=== PATIENT | female | born 1965 | race Caucasian/White ===

== ENCOUNTER 2020-02-09 15:41 | Emergency (ER) | payer OTHER, SELFPAY ==
[2020-02-09 15:43] VITALS: BP 199/101; PULSE 71; RESP 18; TEMP 36.3; O2SAT 99; BMI 27.4
--- NOTE | 2020-02-09 16:41 | XR_ITS ---
WS: [id number] EXAM: AP CHEST: PORTABLE UPRIGHT DATE OF EXAM: 02/09/2020, 1655 hours COMPARISON: NONE HISTORY: Patient is 54 years old with atraumatic chest pain. FINDINGS: The cardiac silhouette is normal in size. The mediastinal contours are normal. The pulmonary vas cularity is normal. Slight chronic lung changes seen suggesting fibrosis. Lungs are clear of consoli dation. There is no effusion or pneumothorax. No acute bony abnormality is seen. XR/XR chest 1V portable [id number] IMPRESSION: No acute pulmonary disease. Slight chronic lung changes felt to be present.
--- NOTE | 2020-02-09 16:41 | ECG_ITS ---
[facility] Test Date: 2020-02-09 Pat Name: Ines Tiwari Department: Room: Gender: Female Digital Operations Analyst: : 1965 Requested By: Leanna Rooney Order Number: [id number] Deepa MD: Arelis Ortiz M.D. Measurements Intervals [place] Rate: 58 P: 46 AK: 169 QRS: 68 QRSD: 85 T: 65 QT: 420 QTc: 414 Interpretive Statements SINUS BRADYCARDIA Possible old septal WI No previous ECG available for comparison Electronically Signed On 02-09-2020 23:04:12 CDT by Arelis Ortiz M.D. [id number]
[2020-02-09 16:42] VITALS: BP 176/99; PULSE 73; RESP 19; O2SAT 99
[2020-02-09 17:00] VITALS: BP 169/99; PULSE 72; RESP 16; O2SAT 100
[2020-02-09] MEDS: aspirin 325 mg Tablet PO (17:02)
--- NOTE | 2020-02-09 17:23 | W.ED.CHESTPA ---
HPI - Chest Pain General: Chief Complaint: Chest Pain Stated Complaint: high blood pressure Time Seen by Provider: 02/09/20 16:39 Source: patient Mode of arrival: ambulatory Limitations: no limitations History of Present Illness: HPI narrative: Ines is a nice 54-year-old female who comes in complaining of chest pressure, lightheadedness, shortness of breath that all occurred today. 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 Today she did take a half dose of 1 of her blood pressure medications she states her symptoms are new and she is never had anything like this before. Her symptoms have resolved now with rest. She does not describe any radiation of her pain, diaphoresis, nausea, vomiting, or other complaints. Patient states that she may have overexerted herself and she understands that she should have taken her medications like she was supposed to. Associated symptoms: Reports dyspnea; Deny abdominal pain, diaphoresis, fever(s), nausea, palpitations, syncope or vomiting Review of Systems Const: Denies: fever(s), chills, body aches, fatigue, malaise or diaphoresis Eyes: Denies: change in vision, blurry vision, photophobia, eye discomfort, eye discharge or eye redness ENMT: Denies: throat pain, odynophagia, hoarseness, swelling of lips/tongue, ear or mastoid pain, ear discharge, change in hearing or nasal discharge Card: Reports: chest pain; Denies: palpitations, irregular heart rhythm, edema, lightheadedness, syncope, pre-syncope, dyspnea on exertion or orthopnea Resp: Reports: dyspnea; Denies: productive cough, non-productive cough, wheezing, hemoptysis or chest congestion GI: Denies: abdominal pain, nausea, vomiting, hematemesis, coffee ground emesis, heartburn, diarrhea, constipation, GI cramping, hematochezia or melena : Denies: flank pain, dysuria, urinary frequency, urinary urgency or hematuria Musc: Denies: neck pain, back pain, extremity pain, extremity swelling, joint pain, joint swelling, joint redness, joint warmth or joint stiffness Skin/Breast: Denies: rash, pruritus, erythema or skin tenderness Neuro: Denies: headache(s), numbness in extremities, weakness in extremities, sensory changes, lack of coordination, difficulty walking, dizziness, vertigo, confusion, Slurred speech present or seizure-like activity Henrry/Lymph: Denies: easy bruising, easy bleeding, petechiae, purpura or enlarged lymph nodes All/Imm: Denies: urticaria, throat swelling, tongue swelling, facial swelling or acute wheezing PFSH ED PFSH: Medical History (Updated 02/09/20 @ 18:38 by Leanna Johnson) Hypertension Hypothyroidism Family History (Updated 02/09/20 @ 17:25 by Leanna Johnson) Denies family history of CAD (coronary artery disease) Stroke Social History (Updated 02/09/20 @ 17:25 by Leanna Johnson) Smoking and tobacco status: current every day smoker Physical Exam Const: COMMON NORMALS: no acute distress, patient oriented x3, no limitations, healthy appearing and well nourished GENERAL APPEARANCE: cooperative, well kempt and well developed HENMT: COMMON NORMALS: normocephalic, atraumatic, external ears normal, EAC's normal and Normal external nose present HEAD & SCALP: normal to inspection, normocephalic and atraumatic FACE & SINUS: normal facial exam and face symmetric NOSE: Normal external nose present and Normal nares present EXTERNAL EAR: Yes external ears normal EXTERNAL AUDITORY CANAL: EAC's normal MOUTH: Normal oral and palatal mucosa present, lip normal and tongue normal Eye: COMMON NORMALS: Equal, round and reactive pupils present and conjunctivae normal GENERAL EYE: appearance normal, both eyes and all related structures ALIGNMENT: Yes alignment normal PERIORBITAL: periorbital findings normal EYELID: eyelids normal CONJUNCTIVA: Yes conjunctivae normal SCLERA: sclerae normal PUPIL: Yes Equal, round and reactive pupils present Neck/C-Spine: COMMON NORMALS: full ROM, no lymphadenopathy, supple, no meningeal signs and no JVD GENERAL: Yes normal visual inspection and Yes trachea midline Chest: COMMONS NORMALS: normal inspection of the chest and normal palpation of entire chest wall Resp: COMMON NORMALS: normal respiratory effort, No retractions, No use of accessory muscles and clear to auscultation bilaterally EFFORT & INSPECTION: Yes able to speak in complete sentences and Yes symmetric chest movement AUSCULTATION: clear to auscultation bilaterally, no crackles, no rales, no rhonchi and no wheezes Cardio: COMMON NORMALS: no JVD, regular rate, regular rhythm, S1 normal heart sound present and S2 normal heart sound present RATE: regular rate RHYTHM: regular rhythm HEART SOUNDS: S1 normal heart sound present, S2 normal heart sound present, no click, no gallops, no murmurs, no rubs and abnormal split S2 GI: COMMON NORMALS: Soft to palpation and No hepatosplenomegaly present PALPATION: Yes Soft to palpation, No Tenderness to palpation present (GI), No Guarding due to palpation present (GI), No Rigid due to palpation, Yes No hepatosplenomegaly present, No Hernia present, No Palpable mass present and No Pulsatile mass present : COMMON NORMALS: Yes no CVA tenderness BLADDER/KIDNEY EXAM: Yes no CVA tenderness EXTERNAL FEMALE EXAM: No Hernia present Back/Pelvis: COMMON NORMALS: no CVA tenderness, thoracic and lumbar spine normal to inspection, no thoracic nor lumbar tenderness and thoraco-lumbar ROM normal Extremity: COMMON NORMALS: normal to inspection, full ROM, capillary refill normal, no joint enlargement, no clubbing, cyanosis or edema and no calf tenderness Neuro: COMMON NORMALS: patient oriented x3, CN's II-XII intact bilaterally, moves all extremities, no focal motor deficits and no sensory deficits noted MENINGEAL SIGNS: Yes no meningeal signs SPEECH: speech normal Psych: COMMON NORMALS: mental status grossly normal, Normal thought process present, cooperative, normal affect, speech normal and activity/motor behavior normal APPEARANCE: Yes well kempt SPEECH: Yes normal speech THOUGHT PROCESS: Normal thought process present Skin: COMMON NORMALS: no rashes or lesions noted, turgor normal, no jaundice, no petechiae and no mottling GENERAL SKIN EXAM: no rashes or lesions noted and turgor normal Course Vital Signs: Vital signs: Vital Signs Temperature 97.4 F L 02/09/20 15:43 Pulse Rate 66 02/09/20 18:36 Respiratory Rate 16 02/09/20 18:36 Blood Pressure 160/91 02/09/20 18:36 Pulse Oximetry 97 02/09/20 18:36 MDM - Chest Pain MDM Narrative: Medical decision making narrative: 1837 -the patient's symptoms are still gone. I went to inform her that her tests were negative. She is insisting upon going at this time. I informed her that I cannot definitively rule out a heart attack without a repeat EKG and second troponin but she declines to stay and wants to go home. We discussed the risks of heart attack including ultimately or severe permanent disability but despite this she wants to be discharged. She agrees to return should her symptoms change or worsen and she accepts the risks of leaving against my advice. Patient understands this is a risk her life but she thinks this is a low risk and wants to be discharged. Patient was welcome to return if she changed her mind. Patient had clear capacity make this decision she understood the risks and benefits and she also understood she could return at any time. Lab Data: Attestation: I reviewed the patient's lab results. Labs: Lab Results 02/09/20 02/09/20 02/09/20 Range/Units 16:55 17:28 17:28 WBC 9.0 (4.0-10.0) 10^3/ uL RBC 4.81 (4.1-5.3) 10^6/u L Hgb 14.8 (11.5-15.3) g/dL Hct 43.8 (37.0-47.0) % MCV 91.1 (81-99) fL MCH 30.8 (28.0-34.0) pg MCHC 33.8 (30.0-36.0) g/dL RDW 12.0 L (12.1-15.1) % Plt Count 340 (130-400) 10^3/c mm MPV 9.9 (7.4-10.4) fL Neut % (Auto) 57.6 % Lymph % (Auto) 33.7 % [place] % (Auto) 6.1 % Eos % (Auto) 1.3 % Baso % (Auto) 1.1 % Neut # (Auto) 5.19 (1.8-7.7) 10^3/u L Lymph # (Auto) 3.0 (0.8-4.8) 10^3/u L [place] # (Auto) 0.6 (0.2-0.9) 10^3/u L Eos # (Auto) 0.1 (0.0-0.8) 10^3/u L Baso # (Auto) 0.1 (0.0-0.1) 10^3/u L Nucleated RBC % (a uto) 0 % Nucleated RBCs # 0.0 /100WBC Troponin T Baselin ai 6 (0-10) ng/L HCG, Qual (Negative) Urine Color Yellow (Yellow) Urine Appearance Clear (CLEAR) Urine pH 7 (5-7) Ur Specific Gravit y 1.010 (1.005-1.030) Urine Protein Neg (Negative) Urine Glucose (UA) Norm (Normal) Urine Ketones Negative (Negative) Urine Blood Trace H (Negative) Urine Nitrate Negative (Negative) Urine Bilirubin Neg (NEGATIVE) Urine Urobilinogen Neg (Negative) mg/dL Ur Leukocyte Qiana ase Negative (Negative) Urine RBC 0-4 H (0-2) /hpf Urine WBC None (0-5) /hpf Ur Squamous Epith Cells 0-4 H (0-5) Amorphous Sediment Not Reportable Urine Bacteria Trace (NONE) 02/09/20 Range/Units 17:28 WBC (4.0-10.0) 10^3/ uL RBC (4.1-5.3) 10^6/u L Hgb (11.5-15.3) g/dL Hct (37.0-47.0) % MCV (81-99) fL MCH (28.0-34.0) pg MCHC (30.0-36.0) g/dL RDW (12.1-15.1) % Plt Count (130-400) 10^3/c mm MPV (7.4-10.4) fL Neut % (Auto) % Lymph % (Auto) % [place] % (Auto) % Eos % (Auto) % Baso % (Auto) % Neut # (Auto) (1.8-7.7) 10^3/u L Lymph # (Auto) (0.8-4.8) 10^3/u L [place] # (Auto) (0.2-0.9) 10^3/u L Eos # (Auto) (0.0-0.8) 10^3/u L Baso # (Auto) (0.0-0.1) 10^3/u L Nucleated RBC % (a uto) % Nucleated RBCs # /100WBC Troponin T Baselin e (0-10) ng/L HCG, Qual Negative (Negative) Urine Color (Yellow) Urine Appearance (CLEAR) Urine pH (5-7) Ur Specific Gravit y (1.005-1.030) Urine Protein (Negative) Urine Glucose (UA) (Normal) Urine Ketones (Negative) Urine Blood (Negative) Urine Nitrate (Negative) Urine Bilirubin (NEGATIVE) Urine Urobilinogen (Negative) mg/dL Ur Leukocyte Qiana ase (Negative) Urine RBC (0-2) /hpf Urine WBC (0-5) /hpf Ur Squamous Epith Cells (0-5) Amorphous Sediment Urine Bacteria (NONE) Imaging Data^: CXR: My impression: No acute cardiopulmonary findings. EKG Data^: EKG 1: Attestation: I personally reviewed and interpreted this EKG as follows: EKG interpretation date: 02/09/20 EKG interpretation time: 15:50 Interpretation: Sinus bradycardia at 58 beats a minute, no acute ST-T wave changes. Normal axis. No blocks, normal intervals. Discharge Plan Discharge Patient Disposition: Home Clinical Impression: Chest pain Qualifiers: Chest pain type: unspecified Qualified Code(s): R07.9 - Chest pain, unspecified Condition: Stable Prescriptions: No Action metoprolol tartrate 50 mg tablet 50 mg PO BID Qty: 60 RF: 0 lorazepam 1 mg tablet 1 mg PO DAILY PRN (Reason: anxiety) 30 Days Qty: 30 RF: 5 Synthroid 125 mcg tablet 125 mcg PO DAILY RF: 0 Aleve 220 mg Capsule 220 mg PO BID PRN (Reason: Pain) RF: 0 Eyedrops See Rx Instructions .ROUTE .COMPLEX RF: 0 Discharge Orders: Discharge Order (Routine); Ordered 02/09/20 Ordered By: Leanna Johnson Referrals: Aggie Arriaga MD [Primary Care Provider] - 1-3 days Discharge Diet: Advance as tolerated Discharge Activity: Increase activity as tolerated Patient Instructions: Chest Pain (ED) Activity Restrictions/Additional Instructions: Please return to the ER immediately for any of the signs or symptoms listed on your discharge instruction sheets, worsening/changing of your symptoms, you are not getting better as quickly as expected, or for ANY other cause or concerns. I have recommended and you have been offered further evaluation and care of your heart. I have recommended and offered to keep you further to repeat EKGs and cardiac enzymes to definitively rule out a heart attack which you have declined. Of course any type of heart problem can be life-threatening so if you change your mind, your symptoms return, you pass out or nearly pass out, you develop any type of chest discomfort or you simply change your mind you are more than welcome to return to the ER at any time for recheck. Coding Level of Care Code ED Spinner Frame for Maynor Fwd Exam Comprehensive
[2020-02-09 17:24] LABS: Urine Appearance Clear (CLEAR); Urine Color Yellow (Yellow); pH Urine 7 (5-7)
[2020-02-09 17:25] LABS: Add Urine Culture? No; Bacteria Urine TRACE; Bilirubin Urine Neg (NEGATIVE); Blood Urine Trace (Negative); Glucose Urine UA Norm (Normal); Ketones Urine Negative (Negative); Leukocyte Esterase Urine Negative (Negative); Nitrate Urine Negative (Negative); Protein Urine Neg (Negative); RBC Urine 0-4 /hpf (0-2); Squamous Epithelial Cell Urine 0-4 (0-5); Urobilinogen Urine Neg (Negative)
[2020-02-09 17:30] VITALS: BP 163/89; PULSE 63; RESP 16; O2SAT 99
[2020-02-09 17:38] LABS: Basophils # 0.1 10^3/uL (0.0-0.1); Basophils % 1.1 %; Eosinophils # 0.1 10^3/uL (0.0-0.8); Eosinophils % 1.3 %; Hematocrit 43.8 % (37.0-47.0); Hemoglobin 14.8 g/dL (11.5-15.3); Lymphocytes % 33.7 %; Mean Corpuscular HGB Conc 33.8 g/dL (30.0-36.0); Mean Corpuscular Hemoglobin 30.8 pg (28.0-34.0); Mean Corpuscular Volume 91.1 fL (81-99); Mean Platelet Volume 9.9 fL (7.4-10.4); Monocytes # 0.6 10^3/uL (0.2-0.9); Monocytes % 6.1 %; Neutrophils # 5.19 10^3/uL (1.8-7.7); Neutrophils % 57.6 %; Nucleated Red Blood Cells % 0 %; Platelet Count 340 10^3/cmm (130-400); Red Blood Count 4.81 10^6/uL (4.1-5.3)
[2020-02-09 17:55] LABS: HCG, Serum Qual Negative (Negative)
[2020-02-09 18:07] LABS: Troponin(5th) Baseline 6 ng/L (0-10)
[2020-02-09 18:36] VITALS: BP 160/91; PULSE 66; RESP 16; O2SAT 97
[2020-02-09 18:47] VITALS: BP 160/91; PULSE 67; RESP 17; O2SAT 98
[2020-02-09 19:10] LABS: Alanine Aminotransferase 21 U/L (0-33); Albumin Level 4.4 g/dL (3.5-5.2); Alkaline Phosphatase 67 IU/L (35-105); Anion Gap 14.9 (5-19); Aspartate Amino Transferase 14 U/L (0-32); Blood Urea Nitrogen 10 mg/dL (6-20); Carbon Dioxide 25 mmol/L (22-29); Chloride 104 mmol/L (98-107); Creatinine Clr Calc Pharmacy 68.7546; Globulin 2.5 g/dL (1.3-4.6); Glomerular Filtration Rate 65.8 mL/min (90-130); Glucose 99 mg/dL (65-115); Lipase 61 U/L (13-60); Magnesium 2.2 mg/dL (1.7-2.3); Osmolality Calculated 286 mOsm/kg (285-295); Potassium 3.9 mmol/L (3.5-5.1); Sodium 140 mmol/L (136-145); Total Bilirubin 0.3 mg/dL (0.15-1.2); Total Protein 6.9 g/dL (6.6-8.7)
== END 2020-02-09 18:48 | disposition home or self-care (01) ==
PROVIDERS: Emergency Provider Emergency Medicine; PCP Family Medicine
DX: R07.9 Chest pain, unspecified (principal); I10 Essential (primary) hypertension; F17.210 Nicotine dependence, cigarettes, uncomplicated
CPT/HCPCS: 12345; 36415; 71045; 80053; 81001; 83690; 83735; 84484; 84703; 85025; 93005; 99282; 99284

== ENCOUNTER → 2020-03-08 10:56 | Outpatient (BNVA) | payer OTHER, SELFPAY | PROVIDERS: PCP Family Medicine; Visit Provider Nurse Practitioner Family | DX: J06.9 Acute upper respiratory infection, unspecified (principal); Z11.59 Encounter for screening for other viral diseases | CPT/HCPCS: 87635 ==

== ENCOUNTER → 2020-05-09 09:20 | Outpatient (BNVA) | payer OTHER, SELFPAY | PROVIDERS: PCP Family Medicine; Visit Provider Family Medicine | DX: E03.9 Hypothyroidism, unspecified (principal); I10 Essential (primary) hypertension; Z86.39 Personal history of other endocrine, nutritional and metabolic disease; F17.210 Nicotine dependence, cigarettes, uncomplicated; Z71.89 Other specified counseling | CPT/HCPCS: 80048; 84439; 84443; 84481; 85025 ==

== ENCOUNTER 2022-04-23 09:33 | Outpatient (CLI) | payer OTHER, SELFPAY | END 2022-04-23 09:34 | disposition home or self-care (01) | LOC: RAD 09:37 | PROVIDERS: PCP Family Medicine; Visit Provider Family Medicine | DX: M19.031 Primary osteoarthritis, right wrist (principal); M19.032 Primary osteoarthritis, left wrist | CPT/HCPCS: 73110 ==

== ENCOUNTER → 2022-08-27 08:07 | Outpatient (BNVA) | payer OTHER, SELFPAY | PROVIDERS: PCP Family Medicine; Referring Provider Family Medicine; Visit Provider Specialist | DX: G56.12 Other lesions of median nerve, left upper limb (principal); G56.31 Lesion of radial nerve, right upper limb | CPT/HCPCS: 73110 ==

== ENCOUNTER 2022-09-25 09:00 | Outpatient (CLI) | payer OTHER, SELFPAY ==
--- NOTE | 2022-09-25 09:30 | MR_ITS ---
WS: [id number] EXAMINATION: MR wrist RT wo con* [id number] ORDER DATE: 09/25/2022 9:20 AM COMPARISON: None. HISTORY: right radial wrist pain CONTRAST: None. TECHNIQUE: Axial T1, axial T2 fat sat, coronal T1, coronal proton density fat sat, coronal STIR, coretta nal 3D, and sagittal T1 performed. After contrast, axial T1 fat sat, coronal T1 fat sat, and sagittal T1 fat sat were performed. FINDINGS: Increased signal abnormality involving the abductor pollicis longus and extensor pollicis b daniela tendons along the radial aspect of the rest with associated fluid along the tendon sheath tiny tible with tendinopathy and tenosynovitis. Small associated presumed ganglion cyst along the dorsal a spect of the tendons measuring 3.3 mm. Radial collateral ligament appears intact. Small amount of edema along the radial aspect of the wrist . Small amount of edema along the extensor retinaculum. Carpal tunnel appears normal. Mild degenerative narrowing at the radiocarpal joint. Normal distal uln a and ulna styloid. Normal scaphoid and lunate. 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 Complex tear involving the TFCC with fluid extending laterally to the ulnar collateral ligament and fluid extendin g medially into the DRUJ Extensor carpi ulnaris appears intact. MR/MR wrist RT wo con* [id number] IMPRESSION: 1. High-grade tear of the TFCC with fluid extending laterally along the ulnar collateral ligament with additional fluid in the DRUJ. Extensor carpi ulnaris a ppears normal. 2. Thickening with increased signal abnormality involving the extensor pollici s brevis and abductor pollicis longus tendons compatible with tendinopathy and tenosynovitis. Fluid along the tendon sheath. 3. Small presumed ganglion cyst along the dorsal aspect of the above-described tendons measuring 3.3 mm. Edema extends along the radial aspect of the wrist i n the area of concern. 4. Scaphoid and lunate appear normal. Normal scapholunate interval. 5. No other acute findings.
== END 2022-09-25 09:01 | disposition home or self-care (01) ==
PROVIDERS: PCP Family Medicine; Visit Provider Specialist
DX: M65.4 Radial styloid tenosynovitis [de Quervain]; S63.591A Other specified sprain of right wrist, initial encounter; X58.XXXA Exposure to other specified factors, initial encounter
CPT/HCPCS: 73221

== ENCOUNTER → 2023-04-20 10:52 | Outpatient (BNVA) | payer OTHER, SELFPAY | PROVIDERS: PCP Family Medicine; Visit Provider Family Medicine | DX: E55.9 Vitamin D deficiency, unspecified (principal); E03.9 Hypothyroidism, unspecified; I10 Essential (primary) hypertension | CPT/HCPCS: 80053; 82306; 84439; 84443; 85025 ==

== ENCOUNTER → 2024-04-15 11:48 | Outpatient (BNVA) | payer OTHER, SELFPAY | PROVIDERS: PCP Family Medicine; Visit Provider Family Medicine | DX: Z86.39 Personal history of other endocrine, nutritional and metabolic disease (principal) | CPT/HCPCS: 84443 ==

== ENCOUNTER → 2024-08-30 11:06 | Outpatient (BNVA) | payer OTHER, SELFPAY | PROVIDERS: PCP Family Medicine; Visit Provider Family Medicine | DX: I10 Essential (primary) hypertension (principal); E03.9 Hypothyroidism, unspecified | CPT/HCPCS: 80053; 84439; 84443; 85025 ==